=== PATIENT | female | born 1980 | race American Indian/Alaskan Native ===

== ENCOUNTER 2017-11-07 20:32 | Emergency (ER) | payer OTHER ==
[2017-11-07 20:42] VITALS: BP 127/56
[2017-11-07 21:08] LABS: ACETAMINOPHEN < 10; ANION GAP 10.9; CHLORIDE,CL 112 mmol/L (101-111); SODIUM,NA 141 mmol/L (135-145)
[2017-11-07] MEDS ORDERED: Phenytoin 250 MG/5 ML SDV IVPUSH ONE (21:16)
[2017-11-07] MEDS ORDERED: Potassium Chloride 10 MEQ in Premix Bag 1 BAG IV ONE (21:19)
[2017-11-07] MEDS ORDERED: Sodium Chloride 0.9% 1,000 ML IV ONE (21:23)
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
== END 2017-11-07 23:23 ==
LOC: DL.ED 20:32
DX: G40.909 Epilepsy, unspecified, not intractable, without status epilepticus (principal); S01.511A Laceration without foreign body of lip, initial encounter; F10.120 Alcohol abuse with intoxication, uncomplicated; Y90.7 Blood alcohol level of 200-239 mg/100 ml; F17.210 Nicotine dependence, cigarettes, uncomplicated; Z88.2 Allergy status to sulfonamides; W22.8XXA Striking against or struck by other objects, initial encounter
CPT/HCPCS: 36415; 70450; 80053; 80305; 81001; 81025; 82150; 85025; 93005; 93010; 96361; 96365; 96375; 99285; G0480; J1165; J3480; J7030

== ENCOUNTER 2019-06-03 03:37 | Emergency (ER) | payer OTHER ==
[2019-06-03] MEDS ORDERED: Sodium Chloride 0.9% 10 ML Syringe FLUSH PRN (03:38)
[2019-06-03] MEDS ORDERED: Sodium Chloride 0.9% 1,000 ML IV ONE (03:38)
[2019-06-03] MEDS ORDERED: methylPREDNISolone Sodium Succinate 125 MG/2 ML SDV IVPUSH ONE (03:38)
[2019-06-03] MEDS ORDERED: Albuterol/Ipratropium 3.0-0.5 MG/3 ML Neb Soln NEB ONE (03:38)
--- NOTE | 2019-06-03 03:43 | EDM.PDOC ---
ED HPI GENERAL MEDICAL PROBLEM - General Chief Complaint: Respiratory Problem Stated Complaint: AMBULANCE Time Seen by Provider: 06/03/19 03:37 Source of Information: Reports: Patient, EMS, EMS Notes Reviewed, RN, RN Notes Reviewed History Limitations: Reports: No Limitations - History of Present Illness INITIAL COMMENTS - FREE TEXT/NARRATIVE: Pt presents to ER per [facility] with c/o SOB, cough, hoarse voice, sore throat, fever , chills. Patient states she has had a mild cough the past 2 days, but worsened on Saturday. Patient admits to nausea, but denies vomiting or diarrhea. Patient admits to meth use on Saturday and Saturday. Denies alcohol use. States she is also taking Suboxone. 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 Social & Family History - Caffeine Use Caffeine Use: Reports: Coffee, Soda, Tea - Living Situation & Occupation Living situation: Reports: with Significant Other ED ROS GENERAL - Review of Systems Review Of Systems: Comprehensive ROS is negative, except as noted in HPI. ED EXAM, GENERAL - Physical Exam Exam: See Below Exam Limited By: No Limitations General Appearance: Alert, WD/WN, Mild Distress Eye Exam: Bilateral Eye: Conjunctival Injection, EOMI Ears: Normal External Exam, Hearing Grossly Normal Nose: Clear Rhinorrhea Throat/Mouth: Other (Tonsils +2 with exudate, erythematous, hoarse voice). No: Normal Voice Head: Atraumatic, Normocephalic Neck: Normal Inspection, Supple, Non-Tender, Full Range of Motion Respiratory/Chest: No Respiratory Distress, Rhonchi (throughout) Cardiovascular: Normal Peripheral Pulses, Regular Rate, Rhythm, No Edema, No Gallop, No JVD, No Murmur, No Rub Peripheral Pulses: 2+: Radial (L), Radial (R) GI/Abdominal: Normal Bowel Sounds, Soft, Non-Tender (Female) Exam: Deferred Rectal (Female) Exam: Deferred Back Exam: Normal Inspection, Full Range of Motion, NT Extremities: Normal Inspection, Normal Range of Motion, Non-Tender, Normal Capillary Refill, No Pedal Edema Neurological: Alert, Oriented, Inattentive, Slow to Respond Psychiatric: Anxious, Tearful Skin Exam: Warm, Dry, Intact, Normal Color, No Rash Lymphatic: No Adenopathy Course - Vital Signs Last Recorded V/S: Last Vital Signs Temp 99.3 F 06/03/19 03:46 Pulse 102 H 06/03/19 03:46 Resp 20 06/03/19 03:46 BP 143/97 H 06/03/19 03:46 Pulse Ox 100 06/03/19 03:46 - Orders/Labs/Meds Orders: Active Orders 24 hr Category Date Time Status Peripheral IV Care [RC] . DIRECTED Care 06/03/19 03:39 Active RT Aerosol Therapy [RC] ASDIRECTED Care 06/03/19 03:39 Active Chest 1V Frontal [CR] Stat Exams 06/03/19 03:38 Taken CULTURE BLOOD [BC] Stat Lab 06/03/19 03:35 Results CULTURE BLOOD [BC] Stat Lab 06/03/19 03:40 Received CULTURE STREP A CONFIRMATION [RM] Stat Lab 06/03/19 03:34 Results DRUG SCREEN URINE BIORAD [URCHEM] Stat Lab 06/03/19 03:38 Ordered HCG QUALITATIVE,URINE [URCHEM] Stat Lab 06/03/19 03:38 Ordered STREP SCRN A RAPID W CULT CONF [RM] Stat Lab 06/03/19 03:34 Results UA RFX EDIN AND CULT IF INDIC [URIN] Stat Lab 06/03/19 03:38 Ordered Sodium Chloride 0.9% [Saline Flush] Med 06/03/19 03:38 Active 10 ml FLUSH ASDIRECTED PRN Blood Culture x2 Reflex Set [OM.PC] Stat Oth 06/03/19 03:38 Ordered Peripheral IV Insertion Adult [OM.PC] Stat Oth 06/03/19 03:38 Ordered Medication Orders Sodium Chloride (Saline Flush) 10 ml FLUSH ASDIRECTED PRN PRN Reason: Keep Vein Open Last Admin: 06/03/19 03:53 Dose: 10 ml Labs: Laboratory Tests 02/05/20 02/05/20 02/05/20 Range/Units 03:40 03:40 03:40 WBC 7.1 (5.0-10.0) 10^3/uL RBC 4.30 (4.2-5.4) 10^6/uL Hgb 11.3 L D (12.0-16.0) g/dL Hct 34.1 L (37.0-47.0) % MCV 79.3 L D (80-100) fL MCH 26.3 L (27.0-34.0) pg MCHC 33.1 (33.0-35.0) g/dL Plt Count 187 (150-450) 10^3/uL Neut % (Auto) 69.5 (42.2-75.2) % Lymph % (Auto) 18.6 L (20.5-50.1) % [place] % (Auto) 8.4 H (2-8) % Eos % (Auto) 3.4 H (1.0-3.0) % Baso % (Auto) 0.1 (0.0-1.0) % Sodium 136 (135-145) mmol/L Potassium 3.6 (3.6-5.0) mmol/L Chloride 106 (101-111) mmol/L Carbon Dioxide 23.0 (21.0-31.0) mmol/L Anion Gap 10.6 BUN 11 (7-18) mg/dL Creatinine 0.6 (0.6-1.3) mg/dL Est Cr Clr Drug Dosing 132.86 mL/min Estimated GFR (MDRD) > 60 BUN/Creatinine Ratio 18.33 Glucose 110 H (74-105) mg/dL Lactic Acid 0.8 (0.5-2.0) mmol/L Calcium 8.0 L (8.4-10.2) mg/dl Total Bilirubin 0.4 (0.2-1.0) mg/dL AST 85 H (10-42) IU/L ALT 133 H (10-60) IU/L Alkaline Phosphatase 234 H (42-121) IU/L Total Protein 7.3 (6.7-8.2) g/dl Albumin 3.4 (3.2-5.5) g/dl Globulin 3.9 Albumin/Globulin Ratio 0.87 Ethyl Alcohol < 5 mg/dL Influenza A: POSITIVE Influenza B: Negative Rapid Strep: Negative Meds: Medications Generic Name Dose Route Start Last Admin Trade Name Chrisq PRN Reason Stop Dose Admin Sodium Chloride 10 ml 06/03/19 03:38 06/03/19 03:53 Saline Flush FLUSH 10 ml ASDIRECTED PRN Administration Keep Vein Open Discontinued Medications Generic Name Dose Route Start Last Admin Trade Name Yang PRN Reason Stop Dose Admin Albuterol/Ipratropium 3 ml 06/03/19 03:38 06/03/19 03:53 Duoneb 3.0-0.5 Mg/3 Ml NEB 06/03/19 03:39 3 ml ONETIME ONE Administration Sodium Chloride 1,000 mls @ 999 mls/hr 06/03/19 03:38 06/03/19 03:53 Normal Saline IV 06/03/19 04:38 999 mls/hr .BOLUS ONE Administration Methylprednisolone Sodium Succinate 125 mg 06/03/19 03:38 06/03/19 03:54 Solu-Medrol IVPUSH 06/03/19 03:39 125 mg ONETIME ONE Administration Oseltamivir Phosphate 75 mg 06/03/19 04:51 06/03/19 04:55 Tamiflu PO 06/03/19 04:52 75 mg ONETIME ONE Administration - Radiology Interpretation Free Text/Narrative:: Chest xray: FINDINGS: Lungs: Low lung volumes, limiting assessment. Central predominant patchy airspace opacities in both lungs. Pleural space: Unremarkable. No pleural effusion. No pneumothorax. Heart/Mediastinum: Unremarkable. No cardiomegaly. Bones/joints: Unremarkable. IMPRESSION: Low lung volumes, limiting assessment. Central predominant patchy airspace opacities in both lungs. Differential considerations include atelectasis, pulmonary edema, and infiltrates. Further assessment with full inspiration PA and lateral chest x-ray may be helpful. Thank you for allowing us to participate in the care of your patient. Dictated and Authenticated by: Dax Chirinos MD 06/03/2019 5:30 AM Central Time ([place] & [place]) See rad report Departure - Departure Time of Disposition: 05:35 Disposition: Home, Self-Care 01 Condition: Fair Clinical Impression: Influenza A, Drug abuse - Discharge Information *PRESCRIPTION DRUG MONITORING PROGRAM REVIEWED*: No *COPY OF PRESCRIPTION DRUG MONITORING REPORT IN PATIENT AMINA: No Instructions: Influenza, Adult, [id number], Cough, Adult, [id number], Viral Respiratory Infection, [id number] Forms: ED Department Discharge Additional Instructions: RX: Tamiflu 75mg orally twice daily for 5 days (Last dose given Saturday AM in ER, next dose not due until Saturday pm) Cover cough at all times Good handwashing to prevent spread of virus Refrain from drug use May use Ibuprofen as directed for pain/fever Avoid Tylenol use Sepsis Event Note - Focused Exam Vital Signs: Vital Signs Temp Pulse Resp BP Pulse Ox 06/03/19 03:46 99.3 F 102 H 20 143/97 H 100 Date Exam was Performed: 06/03/19 Time Exam was Performed: 05:35 - My Orders Last 24 Hours: My Active Orders 06/03/19 03:34 CULTURE STREP A CONFIRMATION [RM] Stat STREP SCRN A RAPID W CULT CONF [RM] Stat 06/03/19 03:35 CULTURE BLOOD [BC] Stat 06/03/19 03:38 Chest 1V Frontal [CR] Stat DRUG SCREEN URINE BIORAD [URCHEM] Stat HCG QUALITATIVE,URINE [URCHEM] Stat UA RFX EDIN AND CULT IF INDIC [URIN] Stat Sodium Chloride 0.9% [Saline Flush] 10 ml FLUSH ASDIRECTED PRN Blood Culture x2 Reflex Set [OM.PC] Stat Peripheral IV Insertion Adult [OM.PC] Stat 06/03/19 03:39 Peripheral IV Care [RC] . DIRECTED RT Aerosol Therapy [RC] ASDIRECTED 06/03/19 03:40 CULTURE BLOOD [BC] Stat - Assessment/Plan Last 24 Hours: My Active Orders 06/03/19 03:34 CULTURE STREP A CONFIRMATION [RM] Stat STREP SCRN A RAPID W CULT CONF [RM] Stat 06/03/19 03:35 CULTURE BLOOD [BC] Stat 06/03/19 03:38 Chest 1V Frontal [CR] Stat DRUG SCREEN URINE BIORAD [URCHEM] Stat HCG QUALITATIVE,URINE [URCHEM] Stat UA RFX EDIN AND CULT IF INDIC [URIN] Stat Sodium Chloride 0.9% [Saline Flush] 10 ml FLUSH ASDIRECTED PRN Blood Culture x2 Reflex Set [OM.PC] Stat Peripheral IV Insertion Adult [OM.PC] Stat 06/03/19 03:39 Peripheral IV Care [RC] . DIRECTED RT Aerosol Therapy [RC] ASDIRECTED 06/03/19 03:40 CULTURE BLOOD [BC] Stat
[2019-06-03 03:53] VITALS: BP 143/97; PULSE 102
[2019-06-03 04:09] LABS: ANION GAP 10.6; CHLORIDE,CL 106 mmol/L (101-111); SODIUM,NA 136 mmol/L (135-145)
[2019-06-03] MEDS ORDERED: Oseltamivir 75 MG Cap PO ONE (04:51)
== END 2019-06-03 05:45 | disposition home or self-care (01) ==
LOC: DL.ED 03:37
DX: J10.1 Influenza due to other identified influenza virus with other respiratory manifestations (principal); F15.10 Other stimulant abuse, uncomplicated; Z88.2 Allergy status to sulfonamides
CPT/HCPCS: 36415; 71045; 80053; 80320; 83605; 85025; 87040; 87081; 87430; 87804; 96361; 96374; 99285; A9270; J2930; J7030; G0480; J7620-GY

== ENCOUNTER 2021-11-29 18:20 | Emergency (ER) | payer MEDICAID, OTHER ==
[~2021-11-29 18:20] MED LIST: Sodium Chloride 0.9% 10 ML Syringe FLUSH PRN; levETIRAcetam in NaCl (iso-os) 1,500 MG in Premix Bag 1 BAG IV ONE; levETIRAcetam in NaCl (iso-os) 100 ML ONE
[2021-11-29 18:52] LABS: ANION GAP 13.5 mEq/L (7-13); CHLORIDE,CL 106 mmol/L (98-107); SODIUM,NA 142 mmol/L (136-145)
[2021-11-29 19:17] LABS: ESTIMATED GFR 103 mL/min (>=60)
[2021-11-29 19:48] LABS: AMPHETAMINES,URINE NEGATIVE (NEGATIVE); BARBITURATES,URINE NEGATIVE (NEGATIVE); BENZODIAZEPINE,URINE NEGATIVE (NEGATIVE); MDMA (ECSTASY), URINE NEGATIVE (NEGATIVE); METHADONE,URINE NEGATIVE (NEGATIVE); METHAMPHETAMINES,URINE NEGATIVE (NEGATIVE); OPIATES,URINE NEGATIVE (NEGATIVE); OXYCODONE,URINE NEGATIVE (NEGATIVE); PHENCYCLIDINE,URINE NEGATIVE (NEGATIVE); TCA,URINE NEGATIVE (NEGATIVE)
[2021-11-29] MEDS ORDERED: Labetalol 20 MG/4 ML Syringe IVPUSH ONE (19:48)
[2021-11-29] MEDS ORDERED: Phenytoin 100 MG Cap.ER PO ONE (20:26)
[2021-11-29] MEDS ORDERED: Ondansetron 4 MG/2 ML SDV IVPUSH ONE (20:33)
[2021-11-29] MEDS ORDERED: Metoprolol Succinate 25 MG Tab.ER PO ONE (20:56)
[2021-11-29] MEDS ORDERED: Metoprolol Succinate 50 MG Tab.ER ONE (21:01)
[2021-11-29 21:19] VITALS: BP 177/105; PULSE 72
== END 2021-11-29 21:19 | disposition home or self-care (01) ==
LOC: DL.ED 18:20
DX: R56.9 Unspecified convulsions (principal); I10 Essential (primary) hypertension; F10.21 Alcohol dependence, in remission; D64.9 Anemia, unspecified; Z88.2 Allergy status to sulfonamides
CPT/HCPCS: 36415; 71045; 80053; 80305-QW; 80307; 81003; 82550; 83605; 84484; 84703; 85025; 93005; 93010; 96374; 96375; 99284; 99284-25; A9270-GY; J1953; J2405; J3490

== ENCOUNTER 2023-04-21 13:53 | Emergency (ER) | payer MEDICAID ==
[2023-04-21 13:57] VITALS: BP 183/94
[2023-04-21 14:22] VITALS: PULSE 58
[2023-04-21] MEDS ORDERED: Lidocaine 1% with EPINEPHrine 1:100,000 20 ML MDV INJECT ONE ×2 (15:42→15:54)
[2023-04-21] MEDS ORDERED: Tranexamic Acid 1,000 MG/10 ML Vial TOP ONE (15:42)
[2023-04-21] MEDS ORDERED: Lidocaine 1% with EPINEPHrine 1:100,000 20 ML MDV ONE (15:55)
[2023-04-21 17:50] LABS: AMPHETAMINES,URINE POSITIVE (NEGATIVE); BARBITURATES,URINE NEGATIVE (NEGATIVE); BENZODIAZEPINE,URINE NEGATIVE (NEGATIVE); MDMA (ECSTASY), URINE POSITIVE (NEGATIVE); METHADONE,URINE NEGATIVE (NEGATIVE); METHAMPHETAMINES,URINE POSITIVE (NEGATIVE); OPIATES,URINE NEGATIVE (NEGATIVE); OXYCODONE,URINE NEGATIVE (NEGATIVE); PHENCYCLIDINE,URINE NEGATIVE (NEGATIVE); TCA,URINE NEGATIVE (NEGATIVE)
== END 2023-04-21 17:49 | disposition home or self-care (01) ==
LOC: DL.ED 13:53
DX: S01.01XA Laceration without foreign body of scalp, initial encounter (principal); F10.920 Alcohol use, unspecified with intoxication, uncomplicated; Z88.2 Allergy status to sulfonamides
CPT/HCPCS: 12002; 36415; 70450; 72125; 80305-QW; 80307; 81025; 99285; J3490